=== PATIENT | female | born 1960 | race Hispanic/Latino ===

== ENCOUNTER → 2022-07-28 | Day surgery (SDC) | payer BC ==
[~2022-07-28] MED LIST: ATORVASTATIN CA20 MG PO; BUPIVACAINE 0.25% 30ML SDV ONE; CEFADROXIL500 MG PO; DEXAMETHASONE SOD PHOS INJ 4 MG/ML SDV IV ONE; EPHEDRINE SULFATE INJ 50 MG/ML VIAL IV ONE; FENTANYL CITRATE/PF 100MCG/2 ML INJ ONE; HYDROCODON-ACE1 EA11 PO; LEVOTHYROXINE112 MCG PO; LIDOCAINE HCL 2% LOCAL INJ 5 ML SDV VIAL INJ ONE; LOSARTAN POTAS100 MG PO; METHOCARBAMOL750 MG PO; METOPROLOL SUCC25 MG PO; NEURONTIN300 MG PO; OMEPRAZOLE40 MG PO; ONDANSETRON HCL INJ 2MG/ML 2ML 2 MG/ML VIAL IV ONE; POVIDONE IODINE 0.05% 0.05 % ML PO ONE; PROPOFOL IV EMULSION 10 MG/ML 20 ML VIAL IV ONE
[2022-07-28 14:15] VITALS: BP 145/72
== END | disposition home or self-care (01) ==
LOC: OR 09:59
PROVIDERS: ATTEND Podiatrist Foot & Ankle Surgery
DX: M20.11 Hallux valgus (acquired), right foot (principal); M20.41 Other hammer toe(s) (acquired), right foot; R22.41 Localized swelling, mass and lump, right lower limb; R00.1 Bradycardia, unspecified; M54.2 Cervicalgia; E78.6 Lipoprotein deficiency; I10 Essential (primary) hypertension; E03.9 Hypothyroidism, unspecified; K21.9 Gastro-esophageal reflux disease without esophagitis; Z01.810 Encounter for preprocedural cardiovascular examination; Z79.899 Other long term (current) drug therapy
CPT/HCPCS: 28285; 28296; 88304; 93005; C1713; J0690; J1100; J2001; J2405; J2704; J3010